=== PATIENT | female | born 1995 | race American Indian/Alaskan Native ===

== ENCOUNTER 2019-02-07 17:07 | Emergency (ER) | payer SELFPAY ==
[2019-02-07 17:12] VITALS: BP 132/76
--- NOTE | 2019-02-07 17:39 | Emergency Department Report ---
ED General Adult HPI - General Chief complaint: Earache Stated complaint: EAR PAIN Source: patient Mode of arrival: Ambulatory Limitations: No Limitations - History of Present Illness Initial comments: 23yo BF states that she has been having L ear pain and congestion x 2 weeks. -: week(s) (2) Location: head Radiation: non-radiation Severity scale (0 -10): 5 Quality: sharp Consistency: constant Improves with: none Worsens with: none Associated Symptoms: other (congestion) Treatments Prior to Arrival: none - Related Data Previous Rx's Medication Instructions Recorded Last Taken Type Amoxicillin/Potassium Clav 1 each PO BID 10 Days #20 tablet 02/07/19 Unknown Rx [Augmentin 875-125 Tablet] Allergies Allergy/AdvReac Type Severity Reaction Status Date / Time No Known Allergies Allergy Unverified 02/07/19 17:09 ED Review of Systems ROS: Stated complaint: EAR PAIN Other details as noted in HPI Constitutional: no symptoms reported Eyes: denies: eye pain, eye discharge, vision change ENT: as per HPI Respiratory: no symptoms reported Cardiovascular: denies: chest pain, palpitations, dyspnea on exertion Endocrine: no symptoms reported Gastrointestinal: denies: abdominal pain, nausea, vomiting Genitourinary: denies: urgency, dysuria, frequency Musculoskeletal: denies: back pain, joint swelling, arthralgia Skin: denies: rash, lesions, change in color Neurological: denies: headache, weakness, numbness Psychiatric: denies: anxiety, depression, auditory hallucinations Hematological/Lymphatic: denies: easy bleeding, easy bruising, swollen glands ED Past Medical Hx - Past Medical History Previous Medical History?: No Hx Hypertension: No Hx CVA: No Hx Heart Attack/AMI: No Hx Congestive Heart Failure: No Hx Diabetes: No Hx Deep Vein Thrombosis: No Hx Pulmonary Embolism: No Hx GERD: No Hx Liver Disease: No Hx Renal Disease: No Hx of Cancer: No Hx Sickle Cell Disease: No Hx Arthritis: No Hx Headaches / Migraines: No Hx Seizures: No Hx Kidney Stones: No Hx Psychiatric Treatment: No Hx Asthma: No - Surgical History Past Surgical History?: No - Social History Smoking Status: Never Smoker Substance Use Type: None - Medications Home Medications: Home Medications Medication Instructions Recorded Confirmed Last Taken Type Amoxicillin/Potassium Clav 1 each PO BID 10 Days #20 tablet 02/07/19 Unknown Rx [Augmentin 875-125 Tablet] ED Physical Exam - General Limitations: No Limitations General appearance: alert, in no apparent distress - Head Head exam: Present: atraumatic, normocephalic, normal inspection - Eye Eye exam: Present: normal appearance, PERRL, EOMI - ENT ENT exam: Present: normal exam, normal orophraynx, other (Nasal turbinates injected and swollen, scant mucus discharge observed) - Expanded ENT Exam Expanded Ear exam: Present: other (L TM dull) TM/Canal exam: Canal Tenderness: Left TM Mouth exam: Present: normal external inspection, tongue normal, tongue elevation Throat exam: Positive: normal inspection - Neck Neck exam: Present: normal inspection, tenderness, full ROM - Respiratory Respiratory exam: Present: normal lung sounds bilaterally. Absent: respiratory distress, wheezes, rales - Cardiovascular Cardiovascular Exam: Present: regular rate, normal rhythm, normal heart sounds - GI/Abdominal GI/Abdominal exam: Present: soft. Absent: distended, tenderness - Rectal Rectal exam: Present: deferred - Extremities Exam Extremities exam: Present: normal inspection, full ROM. Absent: tenderness - Back Exam Back exam: Present: normal inspection, full ROM. Absent: tenderness - Neurological Exam Neurological exam: Present: alert, altered, oriented X3 - Psychiatric Psychiatric exam: Present: normal affect, normal mood. Absent: anxious - Skin Skin exam: Present: warm, dry, intact ED Course Vital Signs 02/07/19 17:11 Temperature 98.8 F Pulse Rate 101 H Respiratory 18 Rate Blood Pressure 132/76 O2 Sat by Pulse 97 Oximetry ED Medical Decision Making - Medical Decision Making 23yo BF states that she has been having L ear pain and congestion x 2 weeks. Pt was explained that she appears to have an ear infection accompanied by sinus irritation. She was informed that she will be given antibiotics and that she may f/u with her PCP. See ER as needed. Pt verbalized understanding and agreed with the plan of care. Critical care attestation.: If time is entered above; I have spent that time in minutes in the direct care of this critically ill patient, excluding procedure time. ED Disposition Clinical Impression: Sinusitis, Otitis media Disposition: DC- TO HOME OR SELFCARE Is pt being admited?: No Does the pt Need Aspirin: No Condition: Stable Instructions: Otitis Media (ED), Sinusitis (ED) Additional Instructions: She was informed that she will be given antibiotics and that she may f/u with her PCP. See ER as needed. Pt verbalized understanding and agreed with the plan of care. Prescriptions: Amoxicillin/Potassium Clav [Augmentin 875-125 Tablet] 1 each PO BID 10 Days #20 tablet Referrals: [facility] [Outside] - 3-5 Days Time of Disposition: 17:53
== END 2019-02-07 19:00 | disposition home or self-care (01) ==
LOC: ED 17:07
DX: J32.9 Chronic sinusitis, unspecified (principal); H66.92 Otitis media, unspecified, left ear; Z79.899 Other long term (current) drug therapy

== ENCOUNTER 2019-04-10 11:07 | Emergency (ER) | payer SELFPAY ==
[2019-04-10 11:27] VITALS: BP 106/67
--- NOTE | 2019-04-10 11:27 | Event Note ---
ED Screening Note Date of service: 04/10/19 Time: 11:26 ED Screening Note: 23 y o f presents with right flank pain x 1 week denies n/v/d This initial assessment/diagnostic orders/clinical plan/treatment(s) is/are subject to change based on patients health status, clinical progression and re-assessment by fellow clinical providers in the ED. Further treatment and workup at subsequent clinical providers discretion. Patient/guardian urged not to elope from the ED as their condition may be serious if not clinically assessed and managed. Initial orders include: ua,upt
[2019-04-10 12:24] LABS: Bacteria,Urine 1+ /HPF (Negative); Bilirubin,Urine NEG (Negative); Blood,Urine NEG (Negative); Color,Urine Amber (Yellow); Mucus,Urine 3+ /HPF; Protein,Urine <15 mg/dL mg/dL (Negative); Urobilinogen,Urine < 2.0 mg/dL (<2.0)
[2019-04-10 12:32] LABS: HCG Qualitative,Urine Negative (Negative)
== END 2019-04-10 11:28 | disposition left against medical advice (07) ==
LOC: ED 11:07
DX: R10.9 Unspecified abdominal pain (principal); Z53.21 Procedure and treatment not carried out due to patient leaving prior to being seen by health care provider
CPT/HCPCS: 81001; 81025

== ENCOUNTER 2019-07-10 17:45 | Emergency (ER) | payer MEDICAID ==
[2019-07-10 17:53] VITALS: BP 126/68
--- NOTE | 2019-07-10 19:01 | Emergency Department Report ---
- General Chief Complaint: Upper Respiratory Infection Stated Complaint: COLD,HEADACHE Time Seen by Provider: 07/10/19 18:34 Source: patient Mode of arrival: Ambulatory Limitations: No Limitations - History of Present Illness Initial Comments: Patient is a 24-year-old female presents emergency room with complaints of nasal congestion that began a week ago. She states that she has associated sinus pressure and has been getting headaches. She states that her left ear sounds muffled. She states the ear pops whenever she coughs or sneezes. She denies any fever, abdominal pain, vaginal bleeding. She states she has been taking DayQuil, NyQuil, aspirin. She denies any past medical history or allergies to medications. She denies any sick contacts or recent travel. She states her last menstrual cycle was in April. She states that she took one test which was positive and then another test which was negative. She states that she frequently has irregular cycles where she will miss several months at a time. - Related Data Previous Rx's Medication Instructions Recorded Last Taken Type Amoxicillin/Potassium Clav 1 each PO BID 10 Days #20 tablet 02/07/19 Unknown Rx [Augmentin 875-125 Tablet] Amoxicillin/Potassium Clav 1 each PO BID 10 Days #20 tablet 07/10/19 Unknown Rx [Augmentin 875-125 Tablet] Fluticasone [Flonase] 1 spray NS QDAY #1 bottle 07/10/19 Unknown Rx Allergies Allergy/AdvReac Type Severity Reaction Status Date / Time No Known Allergies Allergy Verified 07/10/19 17:46 ED Review of Systems ROS: Stated complaint: COLD,HEADACHE Other details as noted in HPI Comment: All other systems reviewed and negative ED Past Medical Hx - Past Medical History Hx Hypertension: No Hx CVA: No Hx Heart Attack/AMI: No Hx Congestive Heart Failure: No Hx Diabetes: No Hx Deep Vein Thrombosis: No Hx Pulmonary Embolism: No Hx GERD: No Hx Liver Disease: No Hx Renal Disease: No Hx Sickle Cell Disease: No Hx Arthritis: No Hx Headaches / Migraines: No Hx Seizures: No Hx Kidney Stones: No Hx Psychiatric Treatment: No Hx Asthma: No - Social History Smoking Status: Current Every Day Smoker - Medications Home Medications: Home Medications Medication Instructions Recorded Confirmed Last Taken Type Amoxicillin/Potassium Clav 1 each PO BID 10 Days #20 tablet 02/07/19 Unknown Rx [Augmentin 875-125 Tablet] Amoxicillin/Potassium Clav 1 each PO BID 10 Days #20 tablet 07/10/19 Unknown Rx [Augmentin 875-125 Tablet] Fluticasone [Flonase] 1 spray NS QDAY #1 bottle 07/10/19 Unknown Rx ED Physical Exam - General Limitations: No Limitations General appearance: alert, in no apparent distress - Head Head exam: Present: atraumatic, normocephalic - Eye Eye exam: Present: normal appearance - ENT ENT exam: Present: normal orophraynx, mucous membranes moist, TM's normal bilaterally, normal external ear exam, other (erythematous nasal turbinates with mucus drainage, no maxillary ttp, bilateral frontal sinus ttp) - Respiratory Respiratory exam: Present: normal lung sounds bilaterally. Absent: respiratory distress, wheezes, rales, rhonchi, stridor, chest wall tenderness, accessory muscle use, decreased breath sounds, prolonged expiratory - Cardiovascular Cardiovascular Exam: Present: regular rate, normal rhythm, normal heart sounds. Absent: systolic murmur, diastolic murmur, rubs, gallop - GI/Abdominal GI/Abdominal exam: Present: soft, normal bowel sounds. Absent: distended, tenderness, guarding, rebound, rigid - Neurological Exam Neurological exam: Present: alert, oriented X3 - Psychiatric Psychiatric exam: Present: normal affect, normal mood - Skin Skin exam: Present: warm, dry, intact ED Course Vital Signs 07/10/19 07/10/19 17:51 19:20 Temperature 97.5 F L Pulse Rate 92 H 77 Respiratory 20 17 Rate Blood Pressure 126/68 O2 Sat by Pulse 100 99 Oximetry ED Medical Decision Making - Medical Decision Making Patient is a 24-year-old female presents emergency room with complaints of nasal congestion that began a week ago. She states that she has associated sinus pressure and has been getting headaches. She states that her left ear sounds muffled. She states the ear pops whenever she coughs or sneezes. She denies any fever, abdominal pain, vaginal bleeding. She states she has been taking DayQuil, NyQuil, aspirin. She denies any past medical history or allergies to medications. She denies any sick contacts or recent travel. She states her last menstrual cycle was in April. She states that she took one test which was positive and then another test which was negative. She states that she frequently has irregular cycles where she will miss several months at a time. Vitals are stable. On exam: erythematous nasal turbinates with mucus drainage, no maxillary ttp, bilateral frontal sinus ttp, bilateral TMs and canals are normal, no mastoid tenderness to palpation bilaterally. Examination consistent with acute frontal sinusitis. Patient given prescription for Augmentin and Flonase. Patient states that she has an irregular cycle, and frequently misses cycles, patient will be referred to an PRICING ANALYST and clinic for further evaluation. Discussed with patient to return immediately if she began experiencing abdominal pain or vaginal bleeding. advised pt Please use medication as prescribed. May take Tylenol as needed for discomfort. Follow- up with the ear nose and throat doctor and have hearing testing completed. Follow-up with a primary care doctor, PRICING ANALYST, or a center for evaluation of your irregular cycle, please return immediately if you began experiencing abdominal pain or vaginal bleeding. Return to the emergency room for any new or worsening symptoms. Critical care attestation.: If time is entered above; I have spent that time in minutes in the direct care of this critically ill patient, excluding procedure time. ED Disposition Clinical Impression: Sinusitis Qualifiers: Sinusitis location: frontal Chronicity: acute Recurrence: non-recurrent Qualified Code(s): J01.10 - Acute frontal sinusitis, unspecified Disposition: DC-01 TO HOME OR SELFCARE Is pt being admited?: No Does the pt Need Aspirin: No Condition: Stable Instructions: Sinusitis (ED) Additional Instructions: Please use medication as prescribed. May take Tylenol as needed for discomfort. Follow-up with the ear nose and throat doctor and have hearing testing completed. Follow-up with a primary care doctor, PRICING ANALYST, or a center for evaluation of your irregular cycle, please return immediately if you began experiencing abdominal pain or vaginal bleeding. Return to the emergency room for any new or worsening symptoms. [facility] care center in [place], [place] Address: [address] [place] [address] [address], [place] [address] Prescriptions: Amoxicillin/Potassium Clav [Augmentin 875-125 Tablet] 1 each PO BID 10 Days #20 tablet Fluticasone [Flonase] 1 spray NS QDAY #1 bottle Referrals: NACHO SULLIVAN MD [Staff Physician] - 3-5 Days [facility] [Outside] - 3-5 Days [facility] [Outside] - 3-5 Days SARAH BAKER MD [Staff Physician] - 3-5 Days POLINA COWAN MD [Staff Physician] - 3-5 Days Time of Disposition: 18:58 Print Language: GERMAN
== END 2019-07-10 19:20 | disposition home or self-care (01) ==
LOC: ED 17:45
DX: J32.9 Chronic sinusitis, unspecified (principal); F17.200 Nicotine dependence, unspecified, uncomplicated; Z79.899 Other long term (current) drug therapy
CPT/HCPCS: 99282

== ENCOUNTER 2019-12-20 14:02 | Outpatient (CLI) | payer MEDICAID ==
[2019-12-20] MEDS ORDERED: LACTATED RINGERS 1,000 ML IV ONE (14:35)
[2019-12-20 14:42] VITALS: BP 128/68
[2019-12-20] MEDS ORDERED: ACETAMINOPHEN 500 MG TAB PO ONE ×2 (14:58→15:22)
[2019-12-20 15:40] LABS: Amorphous Crystals,Urine Few; Bilirubin,Urine NEG (Negative); Blood,Urine NEG (Negative); Color,Urine Yellow (Yellow); Mucus,Urine 3+ /HPF; Protein,Urine <15 mg/dL mg/dL (Negative)
== END 2019-12-20 17:30 | disposition home or self-care (01) ==
LOC: TRG 14:02 → APU 14:04 → TRG 17:30
PROVIDERS: ATTEND Obstetrics & Gynecology
DX: O26.893 Other specified pregnancy related conditions, third trimester (principal); R10.9 Unspecified abdominal pain; O47.03 False labor before 37 completed weeks of gestation, third trimester; Z3A.34 34 weeks gestation of pregnancy
CPT/HCPCS: 59025; 81001; 96360; J7120